=== PATIENT | male | born 1940 | race Caucasian/White ===

== ENCOUNTER 2017-12-02 14:10 | Emergency (ER) | payer MEDICARE ==
--- NOTE | 2017-12-02 14:22 | EDM.PDOC ---
"ED HPI GENERAL MEDICAL PROBLEM - General Chief Complaint: Neuro Symptoms/Deficits Stated Complaint: TROUBLE WALKING, ? SMALL STROKES Time Seen by Provider: 12/02/17 14:22 Source of Information: Reports: Patient, Old Records, RN, RN Notes Reviewed History Limitations: Reports: No Limitations - History of Present Illness INITIAL COMMENTS - FREE TEXT/NARRATIVE: Pt arrives from home by POV with concern that he might have had a stroke. Pt states he was fine when he went to bed last night, but this morning he noticed his legs weren't working normally, oli. the Rt leg seemed weak. He went to breakfast, and when he went to pay he states that he knew he wanted to write a check, but he couldn't make his right hand work. Pt denies difficulties with speech or swallowing, headache, or any other complaints. 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: Aspirin, Other Medication(s) - Related Data Allergies Allergy/AdvReac Type Severity Reaction Status Date / Time lorazepam [From Ativan] Allergy Dizziness Verified 12/02/17 14:50 Penicillins Allergy Hives Verified 12/02/17 14:50 sertraline [From Zoloft] Allergy Anxiety Verified 12/02/17 14:50 Home Meds: Home Meds Acetaminophen 500 mg PO Q6H PRN 06/28/14 [History] Allopurinol [Zyloprim] 300 mg PO DAILY PRN 06/28/14 [History] Amphetamine/Dextroamphetamine [Adderall XR] 15 mg PO DAILY 06/28/14 [History] Aspirin [Halfprin] 81 mg PO DAILY 06/28/14 [History] Clopidogrel Bisulfate [Clopidogrel] 75 mg PO DAILY 06/28/14 [History] Fenofibrate 160 mg PO DAILY 06/28/14 [History] Gabapentin [Neurontin] 600 mg PO BID 06/28/14 [History] Insulin Glarg,Human.Rec.Analog [Lantus Solostar] 40 units SQ ASDIRECTED [History] Insulin Lispro [Humalog] 20 units SQ BID 06/28/14 [History] LORazepam [Ativan] 1 mg PO ASDIRECTED PRN 06/28/14 [History] Meclizine [Antivert] 25 mg PO DAILY PRN 06/28/14 [History] Nitroglycerin [Nitrostat] 0.4 tab SL ASDIRECTED PRN 06/28/14 [History] Simvastatin 20 mg PO BEDTIME 06/28/14 [History] Past Medical History HEENT History: Reports: Cataract Cardiovascular History: Reports: Angina, High Cholesterol, Hypertension Respiratory History: Reports: None Other Respiratory History: states his Sp02 at home runs about 89 to 90. His has a monitor and he always checks his. Gastrointestinal History: Reports: None Other Gastrointestinal History: splenomegaly Genitourinary History: Reports: Prostate Disorder, Renal Calculus, Other (See Below) Other Genitourinary History: ED, testicular pain Musculoskeletal History: Reports: Arthritis, Fracture, Gout Other Musculoskeletal History: right hip pain Neurological History: Reports: Seizure, Other (See Below) Other Neuro History: Narcolepsy Psychiatric History: Reports: Anxiety Other Psychiatric History: claustraphobia Endocrine/Metabolic History: Reports: Diabetes, Type II Hematologic History: Reports: Other (See Below) Other Hematologic History: thrombocytopenia Oncologic (Cancer) History: Reports: Bone, Lymphoma, Prostate - Infectious Disease History Infectious Disease History: Reports: Chicken Pox, Shingles - Past Surgical History Male Surgical History: Reports: Prostate Biopsy, Other (See Below) Social & Family History - Family History Family Medical History: Noncontributory - Tobacco Use Smoking Status *Q: Never Smoker Second Hand Smoke Exposure: No - Alcohol Use Days Per Week of Alcohol Use: 1 Number of Drinks Per Day: 1 Total Drinks Per Week: 1 - Recreational Drug Use Recreational Drug Use: No Drug Use in Last 12 Months: No - Living Situation & Occupation Living situation: Reports: , with Spouse Occupation: Retired ED ROS GENERAL - Review of Systems Review Of Systems: ROS reveals no pertinent complaints other than HPI. ED EXAM, NEURO - Physical Exam Exam: See Below Exam Limited By: No Limitations General Appearance: Alert, No Apparent Distress, Other (chronically ill appearing) Eye Exam: Bilateral Eye: EOMI, Normal Inspection, PERRL Ears: Hearing Grossly Normal Nose: Normal Inspection, Normal Mucosa, No Blood Throat/Mouth: Normal Inspection, Normal Lips, Normal Teeth, Normal Gums, Normal Oropharynx, Normal Voice, No Airway Compromise Head Exam: Atraumatic, Normocephalic Neck: Normal Inspection, Supple, Non-Tender, Full Range of Motion. No: Carotid Bruit, Lymphadenopathy (L), Lymphadenopathy (R) Respiratory/Chest: No Respiratory Distress, Lungs Clear, Normal Breath Sounds, No Accessory Muscle Use, Chest Non-Tender Cardiovascular: Regular Rate, Rhythm, Other (+1 pitting edema to B/L lower extremities) GI/Abdominal: Normal Bowel Sounds, Soft, Non-Tender, No Distention. No: Guarding, Rigid, Rebound (Male) Exam: Deferred Rectal (Males) Exam: Deferred Neurological: Alert, Normal Mood/Affect, CN II-XII Intact, Oriented x 3, Abnormal Gait (chronic), Abnormal Light Touch (chronic at B/L lower exts. distal to knees), Abnormal Motor (mild gen. Rt upper and lower ext. weakness, decrease Rt hand fine motor fct.) Back Exam: Normal Inspection Extremities: Normal Range of Motion, Non-Tender, Pedal Edema Psychiatric: Normal Mood Skin Exam: Warm, Dry, Intact, Normal Color, No Rash EKG INTERPRETATION EKG Date: 12/02/17 Time: 14:56 Rhythm: Other (SR) Rate (Beats/Min): 77 [place]: Normal P-Wave: Present QRS: Other (PACs, inferior Q-waves) ST-T: Normal QT: Normal Comparison: No Change (compared to 05/23/16) Course - Vital Signs Last Recorded V/S: Last Vital Signs Temp 36.7 C 12/02/17 14:15 Pulse 87 12/02/17 14:15 Resp 16 12/02/17 14:15 BP 133/74 12/02/17 14:15 Pulse Ox 91 L 12/02/17 14:15 - Orders/Labs/Meds Orders: Active Orders 24 hr Category Date Time Status EKG 12 Lead [EKG Documentation Completion] [RC] STAT Care 12/02/17 14:48 Active Peripheral IV Care [RC] . DIRECTED Care 12/02/17 14:49 Active UA W/MICROSCOPIC [URIN] Stat Lab 12/02/17 15:11 Ordered Sodium Chloride 0.9% [Saline Flush] Med 12/02/17 14:49 Active 10 ml FLUSH ASDIRECTED PRN Peripheral IV Insertion Adult [OM.PC] Stat Oth 12/02/17 14:48 Ordered Medication Orders Sodium Chloride (Saline Flush) 10 ml FLUSH ASDIRECTED PRN PRN Reason: Keep Vein Open Labs: Laboratory Tests 12/02/17 12/02/17 12/02/17 Range/Units 14:51 14:51 14:51 WBC 4.2 L (5.0-10.0) 10^3/uL RBC 4.08 L (4.6-6.2) 10^6/uL Hgb 12.7 L (14.0-18.0) g/dL Hct 37.1 L (40.0-54.0) % MCV 90.9 (80-100) fL MCH 31.1 (27.0-34.0) pg MCHC 34.2 (33.0-35.0) g/dL Plt Count 80 L (150-450) 10^3/uL Neut % (Auto) 79.2 H (42.2-75.2) % Lymph % (Auto) 12.0 L (20.5-50.1) % [place] % (Auto) 7.2 (2-8) % Eos % (Auto) 1.4 (1.0-3.0) % Baso % (Auto) 0.2 (0.0-1.0) % PT 9.8 (9.0-12.0) SEC INR 1.0 (0.9-1.2) APTT 23.2 (22.0-34.0) SEC Sodium 139 (135-145) mmol/L Potassium 4.1 (3.6-5.0) mmol/L Chloride 109 (101-111) mmol/L Carbon Dioxide 23.0 (21.0-31.0) mmol/L Anion Gap 11.1 BUN 26 H (7-18) mg/dL Creatinine 1.3 (0.6-1.3) mg/dL Est Cr Clr Drug Dosing 44.58 mL/min Estimated GFR (MDRD) 53 BUN/Creatinine Ratio 20.00 Glucose 230 H (74-105) mg/dL Calcium 9.0 (8.4-10.2) mg/dl Total Bilirubin 1.1 H (0.2-1.0) mg/dL AST 51 H (10-42) IU/L ALT 55 (10-60) IU/L Alkaline Phosphatase 58 (42-121) IU/L Troponin I < 0.02 (0.00-0.02) ng/ml C-Reactive Protein (0.0-1.3) mg/dL B-Natriuretic Peptide 7 (0-100) pg/ml Total Protein 7.3 (6.7-8.2) g/dl Albumin 4.2 (3.2-5.5) g/dl Globulin 3.1 Albumin/Globulin Ratio 1.35 Urine Color (YELLOW) Urine Appearance (CLEAR) Urine pH (5.0-9.0) Ur Specific [place] (1.005-1.030) Urine Protein (NEGATIVE) Urine Glucose (UA) (NEGATIVE) Urine Ketones (NEGATIVE) Urine Occult Blood (NEGATIVE) Urine Nitrite (NEGATIVE) Urine Bilirubin (NEGATIVE) Urine Urobilinogen (0.2-1.0) mg/dL Ur Leukocyte Esterase (NEGATIVE) Urine RBC /HPF Urine WBC (0-5/HPF) /HPF Ur Epithelial Cells /HPF Amorphous Sediment (0/HPF) /HPF Urine Bacteria (0-FEW/HPF) /HPF Urine Mucus /LPF 12/02/17 12/02/17 Range/Units 14:51 15:11 WBC (5.0-10.0) 10^3/uL RBC (4.6-6.2) 10^6/uL Hgb (14.0-18.0) g/dL Hct (40.0-54.0) % MCV (80-100) fL MCH (27.0-34.0) pg MCHC (33.0-35.0) g/dL Plt Count (150-450) 10^3/uL Neut % (Auto) (42.2-75.2) % Lymph % (Auto) (20.5-50.1) % [place] % (Auto) (2-8) % Eos % (Auto) (1.0-3.0) % Baso % (Auto) (0.0-1.0) % PT (9.0-12.0) SEC INR (0.9-1.2) APTT (22.0-34.0) SEC Sodium (135-145) mmol/L Potassium (3.6-5.0) mmol/L Chloride (101-111) mmol/L Carbon Dioxide (21.0-31.0) mmol/L Anion Gap BUN (7-18) mg/dL Creatinine (0.6-1.3) mg/dL Est Cr Clr Drug Dosing mL/min Estimated GFR (MDRD) BUN/Creatinine Ratio Glucose (74-105) mg/dL Calcium (8.4-10.2) mg/dl Total Bilirubin (0.2-1.0) mg/dL AST (10-42) IU/L ALT (10-60) IU/L Alkaline Phosphatase (42-121) IU/L Troponin I (0.00-0.02) ng/ml C-Reactive Protein 0.8 (0.0-1.3) mg/dL B-Natriuretic Peptide (0-100) pg/ml Total Protein (6.7-8.2) g/dl Albumin (3.2-5.5) g/dl Globulin Albumin/Globulin Ratio Urine Color Yellow (YELLOW) Urine Appearance Slightly cloudy (CLEAR) Urine pH 5.5 (5.0-9.0) Ur Specific [place] 1.020 (1.005-1.030) Urine Protein 30 H (NEGATIVE) Urine Glucose (UA) 250 H (NEGATIVE) Urine Ketones Negative (NEGATIVE) Urine Occult Blood Negative (NEGATIVE) Urine Nitrite Negative (NEGATIVE) Urine Bilirubin Negative (NEGATIVE) Urine Urobilinogen 0.2 (0.2-1.0) mg/dL Ur Leukocyte Esterase Negative (NEGATIVE) Urine RBC 0-5 /HPF Urine WBC 0-5 (0-5/HPF) /HPF Ur Epithelial Cells Few /HPF Amorphous Sediment Rare (0/HPF) /HPF Urine Bacteria Rare (0-FEW/HPF) /HPF Urine Mucus Many H /LPF Meds: Medications Generic Name Dose Route Start Last Admin Trade Name Freq PRN Reason Stop Dose Admin Sodium Chloride 10 ml 12/02/17 14:49 Saline Flush FLUSH ASDIRECTED PRN Keep Vein Open - Radiology Interpretation Free Text/Narrative:: Final Radiology Report Call: [phone] assistance Online chat: [email or web address] Name: ROLY KAPLAN Age: 77Years M Date: 12/02/2017 SSN: -- : [id number] Study: CT HEAD WO Requesting Physician: Brandon Magallanes Images: 68 Addl Studies: Provided Clinical History: Contrast: Without Contrast Medium: Contrast Amount: Contrast Method: Page 1 of 2 EXAM: CT Head Without Intravenous Contrast CLINICAL HISTORY: 77 years old, male; Signs and symptoms; Other: Possible stroke TECHNIQUE: Axial computed tomography images of the head/brain without intravenous contrast. All CT scans at this facility use one or more dose reduction techniques, viz.: automated exposure control; ma/kV adjustment per patient size (including targeted exams where dose is matched to indication; i.e. head); or iterative reconstruction technique. COMPARISON: CT - Head wo Cont 2016-05-23 15:17 FINDINGS: Brain: There is mild generalized cerebral volume loss. Patchy areas of low attenuation scattered throughout the white matter are nonspecific, but likely represent mild small vessel ischemic changes. There is no evidence of midline shift, mass effect or cerebral edema. No acute intracranial hemorrhage is identified. Ventricles: Unremarkable. No ventriculomegaly. Bones/joints: Unremarkable. No acute fracture. Soft tissues: Unremarkable. Sinuses: Mild mucosal thickening is noted in the maxillary sinuses and bilateral ethmoid air cells. No paranasal sinus air-fluid levels are identified. Mastoid air cells: Unremarkable as visualized. No mastoid effusion. Orbits: The patient is noted to be status post bilateral cataract surgery. IMPRESSION: No acute intracranial abnormality. ROLY KAPLAN | Final Radiology Report CONFIDENTIALITY STATEMENT This report is intended only for use by the referring physician, and only in accordance with law. If you received this in error, call [phone]. Page 2 of 2 Thank you for allowing us to participate in the care of your patient. Dictated and Authenticated by: Mike Brar MD 12/02/2017 3:10 PM Central Time ([place]) EXAM: XR Chest, 1 View CLINICAL HISTORY: 77 years old, male; Signs and symptoms; Other: Edema/weakness TECHNIQUE: Frontal view of the chest. COMPARISON: CT - Chest w Cont 2016-10-20 11:03 FINDINGS: Lungs: A calcified granuloma is noted in the left apex. No consolidation. Pleural space: Unremarkable. No pneumothorax. Heart: Unremarkable. No cardiomegaly. Mediastinum: Unremarkable. Bones/joints: Mild thoracic spine degenerative changes. IMPRESSION: No acute findings. Thank you for allowing us to participate in the care of your patient. Dictated and Authenticated by: Mike Brar MD 12/02/2017 3:42 PM Central Time ([place] & [place]) CT Results Date: 12/02/17 - Re-Assessments/Exams Free Text/Narrative Re-Assessment/Exam: 12/02/17 15:54 I explained the exam findings, lab and imaging results, and recommendation rationale for admission/transfer for further CVA/TIA evaluation (Carotid US, ECHO, MRI/MRA, etc). Pt acknowledges understanding of the findings, and the reason for further evaluation. However, he declines to be either admitted or transferred at this time. 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 I advised the pt that this facility will not have ultrasound or MRI available until Tuesday, December 05. Pt states that if his symptoms persist or worsen he will go to the ER at in tomorrow. I encouraged him to call 911 if he is worse at any time. Departure - Departure Time of Disposition: 15:51 Disposition: Home, Self-Care 01 Condition: Fair Clinical Impression: Right hand weakness Leg weakness Qualifiers: Laterality: unspecified laterality Qualified Code(s): R29.898 - Other symptoms and signs involving the musculoskeletal system - Discharge Information Instructions: Stroke Prevention, [id number], Weakness, [id number] Forms: ED Department Discharge Additional Instructions: Take your regular medications as prescribed. Return to the ER tomorrow for further evaluation if your right hand weakness persists or worsens. Follow up in clinic with your doctor next week for recheck. - My Orders Last 24 Hours: My Active Orders 12/02/17 14:48 EKG 12 Lead [EKG Documentation Completion] [RC] STAT Peripheral IV Insertion Adult [OM.PC] Stat 12/02/17 14:49 Peripheral IV Care [RC] . DIRECTED Sodium Chloride 0.9% [Saline Flush] 10 ml FLUSH ASDIRECTED PRN 12/02/17 15:11 UA W/MICROSCOPIC [URIN] Stat - Assessment/Plan Last 24 Hours: My Active Orders 12/02/17 14:48 EKG 12 Lead [EKG Documentation Completion] [RC] STAT Peripheral IV Insertion Adult [OM.PC] Stat 12/02/17 14:49 Peripheral IV Care [RC] . DIRECTED Sodium Chloride 0.9% [Saline Flush] 10 ml FLUSH ASDIRECTED PRN 12/02/17 15:11 UA W/MICROSCOPIC [URIN] Stat"
[2017-12-02] MEDS ORDERED: Sodium Chloride 0.9% 10 ML Syringe FLUSH PRN (14:49)
[2017-12-02 14:50] VITALS: BP 133/74
[2017-12-02 15:18] LABS: CHLORIDE,CL 109 mmol/L (101-111); SODIUM,NA 139 mmol/L (135-145)
--- NOTE | 2017-12-06 14:13 | EKG ---
12/02/2017- ROLY KAPLAN - FINDINGS: EKG, per my reading, shows sinus rhythm at a rate of 70s with PAC. [facility] /[id number]
== END 2017-12-02 16:10 | disposition home or self-care (01) ==
LOC: DL.ED 14:10
DX: R29.898 Other symptoms and signs involving the musculoskeletal system (principal); E78.00 Pure hypercholesterolemia, unspecified; I10 Essential (primary) hypertension; E11.9 Type 2 diabetes mellitus without complications; Z88.8 Allergy status to other drugs, medicaments and biological substances; Z88.0 Allergy status to penicillin; Z79.899 Other long term (current) drug therapy; Z79.82 Long term (current) use of aspirin; Z79.4 Long term (current) use of insulin
CPT/HCPCS: 36415; 70450; 71045; 80053; 81001; 83880; 84484; 85025; 85610; 85730; 86140; 93005; 93010; 99285

== ENCOUNTER 2018-02-10 09:55 | Emergency (ER) | payer MEDICARE ==
[2018-02-10 10:53] VITALS: BP 159/77
--- NOTE | 2018-02-10 11:02 | EDM.PDOC ---
ED HPI GENERAL MEDICAL PROBLEM - General Chief Complaint: Headache Stated Complaint: FELL AND HIT HEAD, HEADACHE Time Seen by Provider: 02/10/18 10:40 Source of Information: Reports: Patient History Limitations: Reports: No Limitations - History of Present Illness INITIAL COMMENTS - FREE TEXT/NARRATIVE: This 77 yo male patient reports to the ED with posterior neck pain due to a ground level fall. The patient reports he has chronic dizziness and got dizzy last night (2130 or 2200) causing him to fall. The patient reports increased neck pain due the fall. The patient reports that he believes he was knocked out after the fall. The patient reports a lengthy history of lower back pain, prostate cancer with treatments and is scheduled to have vertebral fusion of his lower back in the future. Onset Date: 02/09/18 Onset Time: 21:30 Duration: Constant Location: Reports: Neck (posterior neck) Quality: Reports: Ache Severity: Moderate Improves with: Reports: Rest Worsens with: Reports: Movement Context: Reports: Other Associated Symptoms: Reports: No Other Symptoms Head Pain Score (Numeric/FACES): 6 - Related Data Allergies Allergy/AdvReac Type Severity Reaction Status Date / Time lorazepam [From Ativan] Allergy Dizziness Verified 12/02/17 14:50 Penicillins Allergy Hives Verified 02/10/18 10:30 sertraline [From Zoloft] Allergy Anxiety Verified 02/10/18 10:30 Home Meds: Home Meds Acetaminophen 500 mg PO Q6H PRN 06/28/14 [History] Allopurinol [Zyloprim] 300 mg PO DAILY PRN 06/28/14 [History] Amphetamine/Dextroamphetamine [Adderall XR] 15 mg PO DAILY 06/28/14 [History] Aspirin [Halfprin] 81 mg PO DAILY 06/28/14 [History] Clopidogrel Bisulfate [Clopidogrel] 75 mg PO DAILY 06/28/14 [History] Fenofibrate 160 mg PO DAILY 06/28/14 [History] Gabapentin [Neurontin] 600 mg PO BID 06/28/14 [History] Insulin Glarg,Human.Rec.Analog [Lantus Solostar] 40 units SQ ASDIRECTED [History] Insulin Lispro [Humalog] 20 units SQ BID 06/28/14 [History] LORazepam [Ativan] 1 mg PO ASDIRECTED PRN 06/28/14 [History] Meclizine [Antivert] 25 mg PO DAILY PRN 06/28/14 [History] Nitroglycerin [Nitrostat] 0.4 tab SL ASDIRECTED PRN 06/28/14 [History] Simvastatin 20 mg PO BEDTIME 06/28/14 [History] Past Medical History HEENT History: Reports: Cataract Cardiovascular History: Reports: Angina, High Cholesterol, Hypertension Respiratory History: Reports: None Other Respiratory History: states his Sp02 at home runs about 89 to 90. His has a monitor and he always checks his. Gastrointestinal History: Reports: None Other Gastrointestinal History: splenomegaly Genitourinary History: Reports: Prostate Disorder, Renal Calculus, Other (See Below) Other Genitourinary History: ED, testicular pain Musculoskeletal History: Reports: Arthritis, Fracture, Gout Other Musculoskeletal History: right hip pain Neurological History: Reports: Seizure, Other (See Below) Other Neuro History: Narcolepsy Psychiatric History: Reports: Anxiety Other Psychiatric History: claustraphobia Endocrine/Metabolic History: Reports: Diabetes, Type II Hematologic History: Reports: Other (See Below) Other Hematologic History: thrombocytopenia Oncologic (Cancer) History: Reports: Bone, Lymphoma, Prostate - Infectious Disease History Infectious Disease History: Reports: Chicken Pox, Shingles - Past Surgical History Male Surgical History: Reports: Prostate Biopsy, Other (See Below) Social & Family History - Family History Family Medical History: Noncontributory - Tobacco Use Smoking Status *Q: Unknown Ever Smoked - Caffeine Use Caffeine Use: Reports: Coffee - Recreational Drug Use Recreational Drug Use: No - Living Situation & Occupation Living situation: Reports: , with Spouse Occupation: Retired ED ROS GENERAL - Review of Systems Review Of Systems: ROS reveals no pertinent complaints other than HPI. - Physical Exam Exam: See Below Exam Limited By: No Limitations General Appearance: Alert, WD/WN, Moderate Distress Eye Exam: Bilateral Eye: EOMI, Normal Inspection, PERRL Ears: Normal External Exam, Normal Canal, Hearing Grossly Normal, Normal TMs Nose: Normal Inspection, Normal Mucosa, No Blood Throat/Mouth: Normal Inspection, Normal Lips, Normal Teeth, Normal Gums, Normal Oropharynx, Normal Voice, No Airway Compromise Head Exam: Atraumatic, Normocephalic Neck: Limited Range of Motion (due to pain), Tender Midline (posterior neck) Respiratory/Chest: No Respiratory Distress, Lungs Clear, Normal Breath Sounds, No Accessory Muscle Use, Chest Non-Tender Cardiovascular: Normal Peripheral Pulses, Regular Rate, Rhythm, No Edema, No Gallop, No JVD, No Murmur, No Rub GI/Abdominal: Normal Bowel Sounds, Soft, Non-Tender, No Organomegaly, No Distention, No Abnormal Bruit, No Mass (Male) Exam: Deferred Rectal (Males) Exam: Deferred Neuro Exam (Abbreviated): Alert, Oriented, CN II-XII Intact, Normal Cognition, Normal Gait, Normal Reflexes, No Motor/Sensory Deficits Back Exam: Normal Inspection, Full Range of Motion, NT Extremities: Normal Inspection, Normal Range of Motion, Non-Tender, No Pedal Edema, Normal Capillary Refill Psychiatric: Normal Affect, Normal Mood Skin Exam: Warm, Dry, Intact, Normal Color, No Rash Course - Vital Signs Last Recorded V/S: Last Vital Signs Temp 36.4 C 02/10/18 10:25 Pulse 72 02/10/18 10:25 Resp 16 02/10/18 10:25 BP 159/77 H 02/10/18 10:25 Pulse Ox 99 02/10/18 10:25 - Orders/Labs/Meds Orders: Active Orders 24 hr Category Date Time Status Cervical Spine wo Cont [CT] Urgent Exams 02/10/18 10:12 Taken Head wo Cont [CT] Urgent Exams 02/10/18 10:12 Taken Departure - Departure Time of Disposition: 11:07 Disposition: Home, Self-Care 01 Condition: Fair Clinical Impression: Fall from ground level Neck muscle strain Qualifiers: Encounter type: initial encounter Qualified Code(s): S16.1XXA - Strain of muscle, fascia and tendon at neck level, initial encounter - Discharge Information *PRESCRIPTION DRUG MONITORING PROGRAM REVIEWED*: Not Applicable *COPY OF PRESCRIPTION DRUG MONITORING REPORT IN PATIENT SUSAN: Not Applicable Instructions: Cervical Sprain, [id number] Forms: ED Department Discharge Care Plan Goals: The patient was advised of the examination and CT results during the visit. The patient was encouraged to rest and continue with his current medications as prescribed. If the patient has any additional symptoms or further concerns, the patient should follow-up with his primary care facility or return to the emergency department. - My Orders Last 24 Hours: My Active Orders 02/10/18 10:12 Cervical Spine wo Cont [CT] Urgent Head wo Cont [CT] Urgent - Assessment/Plan Last 24 Hours: My Active Orders 02/10/18 10:12 Cervical Spine wo Cont [CT] Urgent Head wo Cont [CT] Urgent
== END 2018-02-10 11:18 | disposition home or self-care (01) ==
LOC: DL.ED 09:55
DX: S16.1XXA Strain of muscle, fascia and tendon at neck level, initial encounter (principal); E78.00 Pure hypercholesterolemia, unspecified; I10 Essential (primary) hypertension; E11.9 Type 2 diabetes mellitus without complications; Z88.0 Allergy status to penicillin; Z88.8 Allergy status to other drugs, medicaments and biological substances; Z79.82 Long term (current) use of aspirin; Z79.899 Other long term (current) drug therapy; Z79.4 Long term (current) use of insulin; W19.XXXA Unspecified fall, initial encounter
CPT/HCPCS: 70450; 72125; 99283; 99284

== ENCOUNTER 2018-08-10 17:56 | Emergency (ER) | payer MEDICARE ==
[2018-08-10 18:59] LABS: ANION GAP 18.7; CHLORIDE,CL 101 mmol/L (101-111); SODIUM,NA 132 mmol/L (135-145)
[2018-08-10 19:25] VITALS: BP 154/60
[2018-08-10] MEDS ORDERED: Insulin Regular, Human 100 Units/ML 3 ML Vial IV ONE (20:19)
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
[2018-08-10] MEDS ORDERED: Colchicine 0.6 MG Tab PO ONE ×2 (20:49→21:52)
[2018-08-10] MEDS ORDERED: Insulin NPH/Insulin Regular,Human 70-30 100 Units/ML 10 ML Vial SUBCUT ONE (20:52)
[2018-08-10] MEDS ORDERED: Insulin Regular, Human 100 Units/ML 3 ML Vial SUBCUT ONE (20:59)
== END 2018-08-10 21:50 | disposition left against medical advice (07) ==
LOC: DL.ED 17:56
DX: E11.65 Type 2 diabetes mellitus with hyperglycemia (principal); M10.9 Gout, unspecified; R79.1 Abnormal coagulation profile; I10 Essential (primary) hypertension; F41.9 Anxiety disorder, unspecified; C61 Malignant neoplasm of prostate; C77.9 Secondary and unspecified malignant neoplasm of lymph node, unspecified; C79.51 Secondary malignant neoplasm of bone; Z88.0 Allergy status to penicillin; Z88.8 Allergy status to other drugs, medicaments and biological substances; Z79.4 Long term (current) use of insulin; Z79.82 Long term (current) use of aspirin; Z79.899 Other long term (current) drug therapy
CPT/HCPCS: 36415; 73070-RT; 73562-RT; 80053; 81001; 84550; 85025; 85379; 85610; 86140; 87086; 93971; 96372; 99283; A9270-GY; J1815-GY

== ENCOUNTER 2018-08-16 07:25 | Inpatient (IN) | payer MEDICARE ==
--- NOTE | 2018-08-16 07:40 | EDM.PDOC ---
ED HPI GENERAL MEDICAL PROBLEM - General Stated Complaint: STOMACH CRAMPS, LEGS AND HANDS Time Seen by Provider: 08/16/18 07:33 Source of Information: Reports: Patient History Limitations: Reports: No Limitations - History of Present Illness INITIAL COMMENTS - FREE TEXT/NARRATIVE: She comes emergency Department today with complaints of generalized body aches cramps and pain. At approximately 2:00 this morning the patient woke in complains of generalized cramping in his hands and his legs. He has been having to go to the bathroom much more frequently than normal. No painful urination. No fever no chills. No chest pain or shortness of breath or difficulty breathing. Does complain of some suprapubic pain. No other abdominal pain. No diarrhea. No nausea no vomiting. He was seen in the emergency department recently for a lump on his right thigh which he was told his gout and was placed on prednisone. His blood sugars as been higher than normal. - Related Data Allergies Allergy/AdvReac Type Severity Reaction Status Date / Time lorazepam [From Ativan] Allergy Dizziness Verified 08/16/18 11:09 Penicillins Allergy Hives Verified 08/16/18 11:09 sertraline [From Zoloft] Allergy Anxiety Verified 08/16/18 11:09 Home Meds: Home Meds Acetaminophen 500 mg PO Q6H PRN 06/28/14 [History] Allopurinol [Zyloprim] 300 mg PO DAILY 06/28/14 [History] Amphetamine/Dextroamphetamine [Adderall XR] 15 mg PO DAILY 06/28/14 [History] Aspirin [Halfprin] 81 mg PO DAILY 06/28/14 [History] Clopidogrel Bisulfate [Clopidogrel] 75 mg PO DAILY 06/28/14 [History] Fenofibrate 160 mg PO DAILY 06/28/14 [History] Gabapentin [Neurontin] 600 mg PO BID 06/28/14 [History] Insulin Glarg,Human.Rec.Analog [Lantus Solostar] 40 units SQ ASDIRECTED [History] Insulin Lispro [Humalog] 20 units SQ BID 06/28/14 [History] Meclizine [Antivert] 25 mg PO DAILY PRN 06/28/14 [History] Nitroglycerin [Nitrostat] 0.4 tab SL ASDIRECTED PRN 11/28/14 [History] Simvastatin 20 mg PO BEDTIME 06/28/14 [History] Past Medical History HEENT History: Reports: Cataract Cardiovascular History: Reports: Angina, High Cholesterol, Hypertension Respiratory History: Reports: None Other Respiratory History: states his Sp02 at home runs about 89 to 90. His has a monitor and he always checks his. Gastrointestinal History: Reports: None Other Gastrointestinal History: splenomegaly Genitourinary History: Reports: Prostate Disorder, Renal Calculus, Other (See Below) Other Genitourinary History: ED, testicular pain Musculoskeletal History: Reports: Arthritis, Fracture, Gout Other Musculoskeletal History: right hip pain Neurological History: Reports: Seizure, Other (See Below) Other Neuro History: Narcolepsy Psychiatric History: Reports: Anxiety Other Psychiatric History: claustraphobia Endocrine/Metabolic History: Reports: Diabetes, Type II Hematologic History: Reports: Other (See Below) Other Hematologic History: thrombocytopenia Oncologic (Cancer) History: Reports: Bone, Lymphoma, Prostate - Infectious Disease History Infectious Disease History: Reports: Chicken Pox, Shingles - Past Surgical History Male Surgical History: Reports: Prostate Biopsy, Other (See Below) Social & Family History - Family History Family Medical History: Noncontributory - Caffeine Use Caffeine Use: Reports: None - Living Situation & Occupation Living situation: Reports: , with Spouse Occupation: Retired ED ROS GENERAL - Review of Systems Review Of Systems: ROS reveals no pertinent complaints other than HPI. ED EXAM, GENERAL - Physical Exam Exam: See Below Exam Limited By: No Limitations General Appearance: Alert, WD/WN Head: Atraumatic, Normocephalic Neck: Normal Inspection, Supple, Non-Tender Respiratory/Chest: No Respiratory Distress, Lungs Clear, Normal Breath Sounds, No Accessory Muscle Use, Chest Non-Tender Cardiovascular: Normal Peripheral Pulses, Regular Rate, Rhythm GI/Abdominal: Normal Bowel Sounds, Soft, Non-Tender, No Organomegaly, No Distention Back Exam: Normal Inspection, Full Range of Motion Extremities: Normal Inspection, Normal Range of Motion, Non-Tender, Normal Capillary Refill Neurological: Alert, Oriented, Normal Cognition, No Motor/Sensory Deficits Psychiatric: Normal Affect, Normal Mood Skin Exam: Warm, Dry, Intact, No Rash, Pallor Lymphatic: No Adenopathy EKG INTERPRETATION EKG Date: 08/15/18 Time: 07:58 Rhythm: NSR Rate (Beats/Min): 91 [place]: Normal P-Wave: Present QRS: Normal ST-T: Normal QT: Normal Course - Vital Signs Last Recorded V/S: Last Vital Signs Temp 37.2 C 08/16/18 15:51 Pulse 74 08/16/18 15:51 Resp 20 08/16/18 15:51 BP 131/70 08/16/18 15:51 Pulse Ox 97 08/16/18 15:51 - Orders/Labs/Meds Orders: Active Orders 24 hr Category Date Time Status CULTURE URINE [RM] Stat Lab 08/16/18 09:35 Received Peripheral IV Insertion Adult [OM.PC] Routine Oth 08/16/18 09:54 Ordered Peripheral IV Insertion Adult [OM.PC] Stat Oth 08/16/18 07:34 Ordered Medication Orders Acetaminophen (Tylenol Extra Strength) 500 mg PO Q6H PRN PRN Reason: Pain Allopurinol (Zyloprim) 300 mg PO DAILY [facility] Last Admin: 08/16/18 13:04 Dose: Not Given Aspirin (Halfprin) 81 mg PO DAILY [facility] Clopidogrel Bisulfate (Plavix) 75 mg PO DAILY [facility] Last Admin: 08/16/18 13:03 Dose: Not Given Ceftriaxone Sodium 1 gm/ (Lidocaine HCl 2.1 ml) 0 gm IM DAILY ONE Stop: 08/17/18 09:01 Cyclobenzaprine HCl (Flexeril) 10 mg PO DAILY PRN PRN Reason: Muscle Spasm Dextrose/Water (Dextrose 50% In Water) 25 ml IVPUSH ASDIRECTED PRN PRN Reason: Hypoglycemia Gabapentin (Neurontin) 600 mg PO BID [facility] Last Admin: 08/16/18 13:03 Dose: Not Given Glucagon (Glucagen) 1 mg IM ONETIME PRN PRN Reason: Hypoglycemia Heparin Sodium (Porcine) (Heparin Sodium) 5,000 units SUBCUT Q8HR [facility] Last Admin: 08/16/18 14:57 Dose: 5,000 units Lactated Ringer's (Ringers, Lactated) 1,000 mls @ 100 mls/hr IV ASDIRECTED [facility] Last Admin: 08/16/18 14:57 Dose: 100 mls/hr Insulin Glargine (Lantus) 30 unit SUBCUT BEDTIME [facility] Insulin Human Lispro (Humalog) 0 unit SUBCUT TIDAC [facility]; Protocol Last Admin: 08/16/18 17:54 Dose: 6 units Insulin Human Lispro (Humalog) 10 unit SUBCUT BID@0800,1800 [facility] Meclizine HCl (Antivert) 25 mg PO DAILY PRN PRN Reason: Dizziness Nitroglycerin (Nitrostat) 0.4 mg SL Q5M PRN PRN Reason: Chest Pain Non-Formulary Medication (Amphetamine/Dextroamphetamine [Adderall Xr]) 15 mg PO DAILY [facility] Non-Formulary Medication (Fenofibrate [Fenofibrate]) 160 mg PO DAILY [facility] Ondansetron HCl (Zofran Odt) 4 mg PO Q6H PRN PRN Reason: nausea, able to take PO Promethazine HCl (Phenergan) 25 mg PO Q6H PRN PRN Reason: nausea, able to take PO Simvastatin (Zocor) 20 mg PO BEDTIME [facility] Labs: Laboratory Tests 08/16/18 08/16/18 08/16/18 Range/Units 07:41 07:41 07:41 WBC 7.8 (5.0-10.0) 10^3/uL RBC 3.48 L (4.6-6.2) 10^6/uL Hgb 10.5 L (14.0-18.0) g/dL Hct 31.5 L (40.0-54.0) % MCV 90.5 (80-100) fL MCH 30.2 (27.0-34.0) pg MCHC 33.3 (33.0-35.0) g/dL Plt Count 138 L (150-450) 10^3/uL Neut % (Auto) 93.5 H (42.2-75.2) % Lymph % (Auto) 4.2 L (20.5-50.1) % [place] % (Auto) 2.1 (2-8) % Eos % (Auto) 0.1 L (1.0-3.0) % Baso % (Auto) 0.1 (0.0-1.0) % Sodium 138 (135-145) mmol/L Potassium 3.4 L (3.6-5.0) mmol/L Chloride 108 (101-111) mmol/L Carbon Dioxide 17.0 L (21.0-31.0) mmol/L Anion Gap 16.4 BUN 35 H (7-18) mg/dL Creatinine 1.5 H (0.6-1.3) mg/dL Est Cr Clr Drug Dosing TNP Estimated GFR (MDRD) 45 BUN/Creatinine Ratio 23.33 Glucose 66 L (74-105) mg/dL POC Glucose (83-110) mg/dl Calcium 9.2 (8.4-10.2) mg/dl Phosphorus (2.5-4.6) mg/dL Magnesium 2.0 (1.8-2.5) mg/dL Total Bilirubin 0.9 (0.2-1.0) mg/dL AST 36 (10-42) IU/L ALT 31 (10-60) IU/L Alkaline Phosphatase 98 (42-121) IU/L Troponin I < 0.02 (0.00-0.02) ng/ml C-Reactive Protein (0.0-1.3) mg/dL Total Protein 7.1 (6.7-8.2) g/dl Albumin 3.7 (3.2-5.5) g/dl Globulin 3.4 Albumin/Globulin Ratio 1.09 Urine Color (YELLOW) Urine Appearance (CLEAR) Urine pH (5.0-9.0) Ur Specific [place] (1.005-1.030) Urine Protein (NEGATIVE) Urine Glucose (UA) (NEGATIVE) Urine Ketones (NEGATIVE) Urine Occult Blood (NEGATIVE) Urine Nitrite (NEGATIVE) Urine Bilirubin (NEGATIVE) Urine Urobilinogen (0.2-1.0) mg/dL Ur Leukocyte Esterase (NEGATIVE) Urine RBC /HPF Urine WBC (0-5/HPF) /HPF Ur Epithelial Cells /HPF Urine Bacteria (0-FEW/HPF) /HPF 08/16/18 08/16/18 08/16/18 Range/Units 07:41 07:41 07:43 WBC (5.0-10.0) 10^3/uL RBC (4.6-6.2) 10^6/uL Hgb (14.0-18.0) g/dL Hct (40.0-54.0) % MCV (80-100) fL MCH (27.0-34.0) pg MCHC (33.0-35.0) g/dL Plt Count (150-450) 10^3/uL Neut % (Auto) (42.2-75.2) % Lymph % (Auto) (20.5-50.1) % [place] % (Auto) (2-8) % Eos % (Auto) (1.0-3.0) % Baso % (Auto) (0.0-1.0) % Sodium (135-145) mmol/L Potassium (3.6-5.0) mmol/L Chloride (101-111) mmol/L Carbon Dioxide (21.0-31.0) mmol/L Anion Gap BUN (7-18) mg/dL Creatinine (0.6-1.3) mg/dL Est Cr Clr Drug Dosing Estimated GFR (MDRD) BUN/Creatinine Ratio Glucose (74-105) mg/dL POC Glucose 69 L (83-110) mg/dl Calcium (8.4-10.2) mg/dl Phosphorus 2.3 L (2.5-4.6) mg/dL Magnesium (1.8-2.5) mg/dL Total Bilirubin (0.2-1.0) mg/dL AST (10-42) IU/L ALT (10-60) IU/L Alkaline Phosphatase (42-121) IU/L Troponin I (0.00-0.02) ng/ml C-Reactive Protein 1.9 H (0.0-1.3) mg/dL Total Protein (6.7-8.2) g/dl Albumin (3.2-5.5) g/dl Globulin Albumin/Globulin Ratio Urine Color (YELLOW) Urine Appearance (CLEAR) Urine pH (5.0-9.0) Ur Specific [place] (1.005-1.030) Urine Protein (NEGATIVE) Urine Glucose (UA) (NEGATIVE) Urine Ketones (NEGATIVE) Urine Occult Blood (NEGATIVE) Urine Nitrite (NEGATIVE) Urine Bilirubin (NEGATIVE) Urine Urobilinogen (0.2-1.0) mg/dL Ur Leukocyte Esterase (NEGATIVE) Urine RBC /HPF Urine WBC (0-5/HPF) /HPF Ur Epithelial Cells /HPF Urine Bacteria (0-FEW/HPF) /HPF 08/16/18 08/16/18 08/16/18 Range/Units 08:24 08:54 09:35 WBC (5.0-10.0) 10^3/uL RBC (4.6-6.2) 10^6/uL Hgb (14.0-18.0) g/dL Hct (40.0-54.0) % MCV (80-100) fL MCH (27.0-34.0) pg MCHC (33.0-35.0) g/dL Plt Count (150-450) 10^3/uL Neut % (Auto) (42.2-75.2) % Lymph % (Auto) (20.5-50.1) % [place] % (Auto) (2-8) % Eos % (Auto) (1.0-3.0) % Baso % (Auto) (0.0-1.0) % Sodium (135-145) mmol/L Potassium (3.6-5.0) mmol/L Chloride (101-111) mmol/L Carbon Dioxide (21.0-31.0) mmol/L Anion Gap BUN (7-18) mg/dL Creatinine (0.6-1.3) mg/dL Est Cr Clr Drug Dosing Estimated GFR (MDRD) BUN/Creatinine Ratio Glucose (74-105) mg/dL POC Glucose 91 102 (83-110) mg/dl Calcium (8.4-10.2) mg/dl Phosphorus (2.5-4.6) mg/dL Magnesium (1.8-2.5) mg/dL Total Bilirubin (0.2-1.0) mg/dL AST (10-42) IU/L ALT (10-60) IU/L Alkaline Phosphatase (42-121) IU/L Troponin I (0.00-0.02) ng/ml C-Reactive Protein (0.0-1.3) mg/dL Total Protein (6.7-8.2) g/dl Albumin (3.2-5.5) g/dl Globulin Albumin/Globulin Ratio Urine Color Dark yellow (YELLOW) Urine Appearance Cloudy (CLEAR) Urine pH 5.5 (5.0-9.0) Ur Specific [place] 1.015 (1.005-1.030) Urine Protein 30 H (NEGATIVE) Urine Glucose (UA) 500 H (NEGATIVE) Urine Ketones Negative (NEGATIVE) Urine Occult Blood Moderate H (NEGATIVE) Urine Nitrite Positive H (NEGATIVE) Urine Bilirubin Negative (NEGATIVE) Urine Urobilinogen 0.2 (0.2-1.0) mg/dL Ur Leukocyte Esterase Small H (NEGATIVE) Urine RBC 10-20 H /HPF Urine WBC 50-75 H (0-5/HPF) /HPF Ur Epithelial Cells Rare /HPF Urine Bacteria Many H (0-FEW/HPF) /HPF Meds: Medications Generic Name Dose Route Start Last Admin Trade Name Freq PRN Reason Stop Dose Admin Acetaminophen 500 mg 08/16/18 11:41 Tylenol Extra Strength PO Q6H PRN Pain Allopurinol 300 mg 08/16/18 11:45 08/16/18 13:04 Zyloprim PO Not Given DAILY [facility] Aspirin 81 mg 08/17/18 09:00 Halfprin PO DAILY [facility] Clopidogrel Bisulfate 75 mg 08/16/18 11:45 08/16/18 13:03 Plavix PO Not Given DAILY [facility] Ceftriaxone Sodium 1 gm/ 0 gm 08/17/18 09:00 Lidocaine HCl 2.1 ml IM 08/17/18 09:01 DAILY ONE Cyclobenzaprine HCl 10 mg 08/16/18 12:30 Flexeril PO DAILY PRN Muscle Spasm Dextrose/Water 25 ml 08/16/18 12:11 Dextrose 50% In Water IVPUSH ASDIRECTED PRN Hypoglycemia Gabapentin 600 mg 08/16/18 11:45 08/16/18 13:03 Neurontin PO Not Given BID [facility] Glucagon 1 mg 08/16/18 12:11 Glucagen IM ONETIME PRN Hypoglycemia Heparin Sodium (Porcine) 5,000 units 08/16/18 14:00 08/16/18 14:57 Heparin Sodium SUBCUT 5,000 units Q8HR [facility] Administration Lactated Ringer's 1,000 mls @ 100 mls/hr 08/16/18 14:30 08/16/18 14:57 Ringers, Lactated IV 100 mls/hr ASDIRECTED [facility] Administration Insulin Glargine 30 unit 08/16/18 21:00 Lantus SUBCUT BEDTIME [facility] Insulin Human Lispro 0 unit 08/16/18 17:00 08/16/18 17:54 Humalog SUBCUT 6 units TIDAC [facility] Administration Protocol Insulin Human Lispro 10 unit 08/17/18 08:00 Humalog SUBCUT BID@0800,1800 [facility] Meclizine HCl 25 mg 08/16/18 11:41 Antivert PO DAILY PRN Dizziness Nitroglycerin 0.4 mg 08/16/18 11:41 Nitrostat SL Q5M PRN Chest Pain Non-Formulary Medication 15 mg 08/17/18 09:00 Amphetamine/Dextroamphetamine [Adderall Xr] PO DAILY [facility] Non-Formulary Medication 160 mg 08/17/18 09:00 Fenofibrate [Fenofibrate] PO DAILY [facility] Ondansetron HCl 4 mg 08/16/18 11:34 Zofran Odt PO Q6H PRN nausea, able to take PO Promethazine HCl 25 mg 08/16/18 11:34 Phenergan PO Q6H PRN nausea, able to take PO Simvastatin 20 mg 08/16/18 21:00 Zocor PO BEDTIME [facility] Discontinued Medications Generic Name Dose Route Start Last Admin Trade Name Freq PRN Reason Stop Dose Admin Ceftriaxone Sodium 1,000 mg/ 100 mls @ 200 mls/hr 08/16/18 09:54 08/16/18 10: 07 Sodium Chloride IV 08/16/18 10:23 200 mls/hr ONETIME ONE Administration Insulin Human Lispro 10 unit 08/16/18 17:00 08/16/18 17:53 Humalog SUBCUT 10 units BIDAC [facility] Administration Orphenadrine Citrate 30 mg 08/16/18 09:52 08/16/18 10:07 Norflex IM 08/16/18 09:53 30 mg NOW STA Administration Potassium Chloride 40 meq 08/16/18 09:52 08/16/18 10:56 Potassium Chloride Solution PO 08/16/18 09:53 Not Given NOW STA Potassium Chloride 40 meq 08/16/18 17:15 08/16/18 17:52 Klor-Con 10 PO 08/16/18 17:16 40 meq ONETIME ONE Administration Sodium Chloride 10 ml 08/16/18 07:34 08/16/18 10:08 Saline Flush FLUSH 10 ml ASDIRECTED PRN Administration Keep Vein Open Sodium Chloride 10 ml 08/16/18 09:54 Saline Flush FLUSH ASDIRECTED PRN Keep Vein Open Sodium Phosphate 250 mg 08/16/18 17:15 08/16/18 17:52 Neutra-Phos PO 08/16/18 17:16 250 mg ONETIME ONE Administration - Re-Assessments/Exams Free Text/Narrative Re-Assessment/Exam: 08/15/18 his initial blood sugar is in the 60s. He was given some oral food as well as orange juice and protein. His EKG is rather unremarkable and negative. Patient's blood sugar improved over 100. i did review his chart he recently was seen in the emergency department and found to have Escherichia coli in his urine culture but he was not placed on any antibiotics. His urine at this time is clearly infectious. He was given some Rocephin in the emergency department. He was also recently treated for gout with some prednisone which may be causing problems with his blood sugars as well as the urinary tract infection. He also complains of quite a bit of muscle spasms and cramps which can be related tohis potassium his magnesium is normal. I feel that with a urinary tract infection he lives at home alone and his difficulty with his blood sugars that we should monitor him in observation to ensure that he is improving that he does not become hypoglycemic at home as he has no one to stay with him.I talked to the hospitalist employee relations advisor and he accepted the patient under his care and observation here. Departure - Departure Time of Disposition: 10:08 Disposition: Refer to Observation Clinical Impression: Weakness, Hypoglycemia UTI (urinary tract infection) Qualifiers: Urinary tract infection type: site unspecified Hematuria presence: with hematuria Qualified Code(s): N39.0 - Urinary tract infection, site not specified - Discharge Information - My Orders Last 24 Hours: My Active Orders 08/16/18 07:34 Peripheral IV Insertion Adult [OM.PC] Stat 08/16/18 09:35 CULTURE URINE [RM] Stat 08/16/18 09:54 Peripheral IV Insertion Adult [OM.PC] Routine - Assessment/Plan Last 24 Hours: My Active Orders 08/16/18 07:34 Peripheral IV Insertion Adult [OM.PC] Stat 08/16/18 09:35 CULTURE URINE [RM] Stat 08/16/18 09:54 Peripheral IV Insertion Adult [OM.PC] Routine Assessment:: UTI Muscle cramps UTI Hypokalemia hypoglycemia weakness Plan: Admit for observation here at [facility].
[2018-08-16 08:11] LABS: ANION GAP 16.4; CHLORIDE,CL 108 mmol/L (101-111); SODIUM,NA 138 mmol/L (135-145)
[2018-08-16] MEDS: Sodium Chloride 0.9% 10 ML Syringe FLUSH PRN ×2 (08:59→10:08)
[2018-08-16] MEDS ORDERED: Potassium Chloride 10% 20 MEQ/15 ML Soln 15 ML UD Cup PO STA (09:52)
[2018-08-16] MEDS ORDERED: Sodium Chloride 0.9% 10 ML Syringe FLUSH PRN (09:54)
[2018-08-16] MEDS ORDERED: Ondansetron 4 MG Tab.DIS PO PRN (11:34)
[2018-08-16] MEDS ORDERED: Promethazine 25 MG Tab PO PRN (11:34)
[2018-08-16] MEDS ORDERED: Nitroglycerin 0.4 MG Tab.SL SL PRN (11:41)
[2018-08-16] MEDS ORDERED: Meclizine 12.5 MG Tab PO PRN (11:41)
--- NOTE | 2018-08-16 11:50 | PCM.HP ---
H&P History of Present Illness - General Date of Service: 08/16/18 Admit Problem/Dx: Admission Diagnosis/Problem Admission Diagnosis/Problem Weakness Source of Information: Patient, Old Records - History of Present Illness Initial Comments - Free Text/Narative: Mr. Jones is a 77-year-old male with history significant for coronary artery disease, diabetes, dyslipidemia, kidney stones, posterior tonsillar status post radiation therapy seizure disorder, chronic thrombocytopenia and gout who presented to the ED with complains of generalized body aches, cramps and weakness. He reports that he has had muscle cramps on and off for several months but this time it was so severe that it woke him up from his sleep. He denies any exposure to sick contacts or being in the cold. Was recently started on short course of prednisone for gout. Reports that he feels weaker than his baseline. Reports intermittent non-productive cough. Also reports intermittent episodes of hematuria but denies any current bloody urine. Reports "a little" dysuria. Also reports edema of his lower extremity. He denies fevers, chills, chest pain, shortness of breath, abdominal pain, n/v/d, melena, hematochezia, or any other symptoms. Denies history of tobacco, alcohol, and illicit drug use. - Related Data Allergies/Adverse Reactions: Allergies Allergy/AdvReac Type Severity Reaction Status Date / Time lorazepam [From Ativan] Allergy Dizziness Verified 08/16/18 11:09 Penicillins Allergy Hives Verified 08/16/18 11:09 sertraline [From Zoloft] Allergy Anxiety Verified 08/16/18 11:09 Home Medications: Home Meds Acetaminophen 500 mg PO Q6H PRN 06/28/14 [History] Allopurinol [Zyloprim] 300 mg PO DAILY 06/28/14 [History] Amphetamine/Dextroamphetamine [Adderall XR] 15 mg PO DAILY 06/28/14 [History] Aspirin [Halfprin] 81 mg PO DAILY 06/28/14 [History] Clopidogrel Bisulfate [Clopidogrel] 75 mg PO DAILY 06/28/14 [History] Fenofibrate 160 mg PO DAILY 06/28/14 [History] Gabapentin [Neurontin] 600 mg PO BID 06/28/14 [History] Insulin Glarg,Human.Rec.Analog [Lantus Solostar] 40 units SQ ASDIRECTED [History] Insulin Lispro [Humalog] 20 units SQ BID 06/28/14 [History] Meclizine [Antivert] 25 mg PO DAILY PRN 06/28/14 [History] Nitroglycerin [Nitrostat] 0.4 tab SL ASDIRECTED PRN 06/28/14 [History] Simvastatin 20 mg PO BEDTIME 06/28/14 [History] Past Medical History HEENT History: Reports: Cataract Cardiovascular History: Reports: Angina, High Cholesterol, Hypertension Respiratory History: Reports: Asthma Other Respiratory History: states his Sp02 at home runs about 89 to 90. His has a monitor and he always checks his. Gastrointestinal History: Reports: Chronic Diarrhea, GERD Other Gastrointestinal History: splenomegaly Genitourinary History: Reports: Prostate Disorder, Renal Calculus, Other (See Below) Other Genitourinary History: ED, testicular pain Musculoskeletal History: Reports: Arthritis, Fracture, Gout Other Musculoskeletal History: right hip pain Neurological History: Reports: Seizure, Vertigo, Other (See Below) Other Neuro History: Narcolepsy Psychiatric History: Reports: Anxiety, Bipolar Other Psychiatric History: claustraphobia Endocrine/Metabolic History: Reports: Diabetes, Type II Hematologic History: Reports: Other (See Below) Other Hematologic History: thrombocytopenia Immunologic History: Reports: None Oncologic (Cancer) History: Reports: Bone, Lymphoma, Prostate Dermatologic History: Reports: None - Infectious Disease History Infectious Disease History: Reports: None - Past Surgical History Head Surgeries/Procedures: Reports: None Cardiovascular Surgical History: Reports: None Respiratory Surgical History: Reports: None GI Surgical History: Reports: None, Colonoscopy, EGD, Hernia, Abdominal Male Surgical History: Reports: Prostate Biopsy, Other (See Below) Other Male Surgeries/Procedures: unknown prostate surgery Endocrine Surgical History: Reports: None Neurological Surgical History: Reports: None Dermatological Surgical History: Reports: None Social & Family History - Family History Family Medical History: Noncontributory - Tobacco Use Smoking Status *Q: Never Smoker Second Hand Smoke Exposure: No - Caffeine Use Caffeine Use: Reports: None - Recreational Drug Use Recreational Drug Use: No - Living Situation & Occupation Living situation: Reports: , with Spouse Occupation: Retired H&P Review of Systems - Review of Systems: Review Of Systems: ROS reveals no pertinent complaints other than HPI. Exam - Exam Exam: See Below - Vital Signs Vital Signs: Last Vital Signs Temp 97.7 F 08/16/18 10:57 Pulse 90 08/16/18 10:57 Resp 22 H 08/16/18 10:57 BP 140/66 08/16/18 10:57 Pulse Ox 97 08/16/18 10:57 Weight: 178 lb 9.6 oz - Exam Physical Exam Comments:: General: Alert and oriented to place, time and person, mild-moderate distress Head: atraumatic and normocephalic. Eyes: PERRLA, EOMI, anicteric, Ear, Nose and Throat: No gross abnormality found Neck: Supple Respiratory/Chest: CTAB, no wheezes, crackles, rales, or rhonci; Good air entry bilaterally. No increased work of breathing CVS: RRR, no murmur, rub, or gallop, peripheral pulses palpable. Gastrointestinal/Abd: Soft, non-distended, non-tender. Normal bowel sounds. Skin: No acute rashes noted. Neuro: Grossly non-focal. No cranial nerve abnormality. Moves all extremities. 5 /5 motor function in upper extremities, 4+/5. Psych: Alert and oriented to place time and person. No hallucinations or delusions noted. Musculoskeletal: No abnormality noted. Ext: 2+ pitting edema of BLE, no ulcers, no tenderness, no size differences, - Patient Data Lab Results Last 24 hrs: Laboratory Results - last 24 hr 08/16/18 08/16/18 08/16/18 Range/Units 07:41 07:41 07:41 WBC 7.8 (5.0-10.0) 10^3/uL RBC 3.48 L (4.6-6.2) 10^6/uL Hgb 10.5 L (14.0-18.0) g/dL Hct 31.5 L (40.0-54.0) % MCV 90.5 (80-100) fL MCH 30.2 (27.0-34.0) pg MCHC 33.3 (33.0-35.0) g/dL Plt Count 138 L (150-450) 10^3/uL Neut % (Auto) 93.5 H (42.2-75.2) % Lymph % (Auto) 4.2 L (20.5-50.1) % [place] % (Auto) 2.1 (2-8) % Eos % (Auto) 0.1 L (1.0-3.0) % Baso % (Auto) 0.1 (0.0-1.0) % Sodium 138 (135-145) mmol/L Potassium 3.4 L (3.6-5.0) mmol/L Chloride 108 (101-111) mmol/L Carbon Dioxide 17.0 L (21.0-31.0) mmol/L Anion Gap 16.4 BUN 35 H (7-18) mg/dL Creatinine 1.5 H (0.6-1.3) mg/dL Est Cr Clr Drug Dosing TNP Estimated GFR (MDRD) 45 BUN/Creatinine Ratio 23.33 Glucose 66 L (74-105) mg/dL POC Glucose (83-110) mg/dl Calcium 9.2 (8.4-10.2) mg/dl Magnesium 2.0 (1.8-2.5) mg/dL Total Bilirubin 0.9 (0.2-1.0) mg/dL AST 36 (10-42) IU/L ALT 31 (10-60) IU/L Alkaline Phosphatase 98 (42-121) IU/L Troponin I < 0.02 (0.00-0.02) ng/ml C-Reactive Protein (0.0-1.3) mg/dL Total Protein 7.1 (6.7-8.2) g/dl Albumin 3.7 (3.2-5.5) g/dl Globulin 3.4 Albumin/Globulin Ratio 1.09 Urine Color (YELLOW) Urine Appearance (CLEAR) Urine pH (5.0-9.0) Ur Specific [place] (1.005-1.030) Urine Protein (NEGATIVE) Urine Glucose (UA) (NEGATIVE) Urine Ketones (NEGATIVE) Urine Occult Blood (NEGATIVE) Urine Nitrite (NEGATIVE) Urine Bilirubin (NEGATIVE) Urine Urobilinogen (0.2-1.0) mg/dL Ur Leukocyte Esterase (NEGATIVE) Urine RBC /HPF Urine WBC (0-5/HPF) /HPF Ur Epithelial Cells /HPF Urine Bacteria (0-FEW/HPF) /HPF 08/16/18 08/16/18 08/16/18 Range/Units 07:41 07:43 08:24 WBC (5.0-10.0) 10^3/uL RBC (4.6-6.2) 10^6/uL Hgb (14.0-18.0) g/dL Hct (40.0-54.0) % MCV (80-100) fL MCH (27.0-34.0) pg MCHC (33.0-35.0) g/dL Plt Count (150-450) 10^3/uL Neut % (Auto) (42.2-75.2) % Lymph % (Auto) (20.5-50.1) % [place] % (Auto) (2-8) % Eos % (Auto) (1.0-3.0) % Baso % (Auto) (0.0-1.0) % Sodium (135-145) mmol/L Potassium (3.6-5.0) mmol/L Chloride (101-111) mmol/L Carbon Dioxide (21.0-31.0) mmol/L Anion Gap BUN (7-18) mg/dL Creatinine (0.6-1.3) mg/dL Est Cr Clr Drug Dosing Estimated GFR (MDRD) BUN/Creatinine Ratio Glucose (74-105) mg/dL POC Glucose 69 L 91 (83-110) mg/dl Calcium (8.4-10.2) mg/dl Magnesium (1.8-2.5) mg/dL Total Bilirubin (0.2-1.0) mg/dL AST (10-42) IU/L ALT (10-60) IU/L Alkaline Phosphatase (42-121) IU/L Troponin I (0.00-0.02) ng/ml C-Reactive Protein 1.9 H (0.0-1.3) mg/dL Total Protein (6.7-8.2) g/dl Albumin (3.2-5.5) g/dl Globulin Albumin/Globulin Ratio Urine Color (YELLOW) Urine Appearance (CLEAR) Urine pH (5.0-9.0) Ur Specific [place] (1.005-1.030) Urine Protein (NEGATIVE) Urine Glucose (UA) (NEGATIVE) Urine Ketones (NEGATIVE) Urine Occult Blood (NEGATIVE) Urine Nitrite (NEGATIVE) Urine Bilirubin (NEGATIVE) Urine Urobilinogen (0.2-1.0) mg/dL Ur Leukocyte Esterase (NEGATIVE) Urine RBC /HPF Urine WBC (0-5/HPF) /HPF Ur Epithelial Cells /HPF Urine Bacteria (0-FEW/HPF) /HPF 08/16/18 08/16/18 Range/Units 08:54 09:35 WBC (5.0-10.0) 10^3/uL RBC (4.6-6.2) 10^6/uL Hgb (14.0-18.0) g/dL Hct (40.0-54.0) % MCV (80-100) fL MCH (27.0-34.0) pg MCHC (33.0-35.0) g/dL Plt Count (150-450) 10^3/uL Neut % (Auto) (42.2-75.2) % Lymph % (Auto) (20.5-50.1) % [place] % (Auto) (2-8) % Eos % (Auto) (1.0-3.0) % Baso % (Auto) (0.0-1.0) % Sodium (135-145) mmol/L Potassium (3.6-5.0) mmol/L Chloride (101-111) mmol/L Carbon Dioxide (21.0-31.0) mmol/L Anion Gap BUN (7-18) mg/dL Creatinine (0.6-1.3) mg/dL Est Cr Clr Drug Dosing Estimated GFR (MDRD) BUN/Creatinine Ratio Glucose (74-105) mg/dL POC Glucose 102 (83-110) mg/dl Calcium (8.4-10.2) mg/dl Magnesium (1.8-2.5) mg/dL Total Bilirubin (0.2-1.0) mg/dL AST (10-42) IU/L ALT (10-60) IU/L Alkaline Phosphatase (42-121) IU/L Troponin I (0.00-0.02) ng/ml C-Reactive Protein (0.0-1.3) mg/dL Total Protein (6.7-8.2) g/dl Albumin (3.2-5.5) g/dl Globulin Albumin/Globulin Ratio Urine Color Dark yellow (YELLOW) Urine Appearance Cloudy (CLEAR) Urine pH 5.5 (5.0-9.0) Ur Specific [place] 1.015 (1.005-1.030) Urine Protein 30 H (NEGATIVE) Urine Glucose (UA) 500 H (NEGATIVE) Urine Ketones Negative (NEGATIVE) Urine Occult Blood Moderate H (NEGATIVE) Urine Nitrite Positive H (NEGATIVE) Urine Bilirubin Negative (NEGATIVE) Urine Urobilinogen 0.2 (0.2-1.0) mg/dL Ur Leukocyte Esterase Small H (NEGATIVE) Urine RBC 10-20 H /HPF Urine WBC 50-75 H (0-5/HPF) /HPF Ur Epithelial Cells Rare /HPF Urine Bacteria Many H (0-FEW/HPF) /HPF Result Diagrams: 08/16/18 07:41 08/16/18 07:41 - Problem List (1) Muscle cramp SNOMED Code(s): 67632467 ICD Code: R25.2 - CRAMP AND SPASM Status: Acute Current Visit: Yes (2) Thrombocytopenia SNOMED Code(s): 397437671 ICD Code: D69.6 - THROMBOCYTOPENIA, UNSPECIFIED Status: Acute Current Visit: Yes (3) Anemia SNOMED Code(s): 785293017 ICD Code: D64.9 - ANEMIA, UNSPECIFIED Status: Acute Current Visit: Yes (4) Metabolic acidosis SNOMED Code(s): 38024243 ICD Code: E87.2 - ACIDOSIS Status: Acute Current Visit: Yes (5) Gout of right elbow SNOMED Code(s): 288197800, 314043368 ICD Code: M10.9 - GOUT, UNSPECIFIED Status: Acute Current Visit: No Qualifiers: Gout etiology: unspecified cause Chronicity: acute Qualified Code(s): M10.9 - Gout, unspecified (6) UTI (urinary tract infection) SNOMED Code(s): 71289878 ICD Code: N39.0 - URINARY TRACT INFECTION, SITE NOT SPECIFIED Status: Acute Current Visit: No Qualifiers: Urinary tract infection type: site unspecified Hematuria presence: with hematuria Qualified Code(s): N39.0 - Urinary tract infection, site not specified; R31.9 - Hematuria, unspecified Problem List Initiated/Reviewed/Updated: Yes Orders Last 24hrs: Active Orders 24 hr Category Date Time Status Patient Status [ADT] Routine ADT 08/16/18 11:34 Ordered Blood Glucose Check, Bedside [RC] QIDACANDBED Care 08/16/18 11:34 Ordered Oxygen Therapy [RC] PRN Care 08/16/18 11:34 Ordered POC Glucose [Blood Glucose Check, Bedside] [RC] ONETIME Care 08/16/18 07:34 Active Peripheral IV Care [RC] . DIRECTED Care 08/16/18 07:34 Active Peripheral IV Care [RC] . DIRECTED Care 08/16/18 09:54 Active Up With Assistance [RC] ASDIRECTED Care 08/16/18 11:34 Ordered VTE/DVT Education [RC] PER UNIT ROUTINE Care 08/16/18 11:34 Ordered Vital Signs [RC] Q4H Care 08/16/18 11:34 Ordered Consistent Carbohydrate Diet [DIET] Diet 08/16/18 Lunch Ordered BASIC METABOLIC PANEL,BMP [CHEM] AM Lab 08/17/18 05:11 Ordered CBC W/O DIFF,HEMOGRAM [HEME] AM Lab 08/17/18 05:11 Ordered CULTURE URINE [RM] Stat Lab 08/16/18 09:35 Received PHOSPHORUS [CHEM] Routine Lab 08/16/18 11:34 Ordered Acetaminophen [Tylenol Extra Strength] Med 08/16/18 11:41 Ordered 500 mg PO Q6H PRN Allopurinol [Zyloprim] Med 08/16/18 11:45 Ordered 300 mg PO DAILY Amphetamine/Dextroamphetamine [Adderall XR] Med 08/17/18 09:00 Ordered 15 mg PO DAILY Aspirin [Halfprin] Med 08/17/18 09:00 Ordered 81 mg PO DAILY Clopidogrel [Plavix] Med 08/16/18 11:45 Ordered 75 mg PO DAILY Fenofibrate [Fenofibrate] Med 08/17/18 09:00 Ordered 160 mg PO DAILY Gabapentin [Neurontin] Med 08/16/18 11:45 Ordered 600 mg PO BID Heparin Sodium Med 08/16/18 14:00 Ordered 5,000 units SUBCUT Q8HR Insulin Glarg,Human.Rec.Analog [Lantus Solostar] Med 08/16/18 21:00 Ordered 30 units SQ BEDTIME Insulin Lispro [Humalog] Med 08/16/18 17:00 Ordered 10 units SQ BIDAC Meclizine [Antivert] Med 08/16/18 11:41 Ordered 25 mg PO DAILY PRN Nitroglycerin [Nitrostat] Med 08/16/18 11:41 Ordered 0.4 tab SL ASDIRECTED PRN Ondansetron [Zofran ODT] Med 08/16/18 11:34 Ordered 4 mg PO Q6H PRN Promethazine [Phenergan] Med 08/16/18 11:34 Ordered 25 mg PO Q6H PRN Simvastatin [Zocor] Med 08/16/18 21:00 Ordered 20 mg PO BEDTIME cefTRIAXone [Rocephin] 1 gm Med 08/17/18 11:45 Ordered Lidocaine 1% [Xylocaine-MPF 1%] 2.1 ml IM DAILY Peripheral IV Insertion Adult [OM.PC] Routine Oth 08/16/18 09:54 Ordered Peripheral IV Insertion Adult [OM.PC] Stat Oth 08/16/18 07:34 Ordered Resuscitation Status Routine Resus Stat 08/16/18 11:34 Ordered Medication Orders Acetaminophen (Tylenol Extra Strength) 500 mg PO Q6H PRN PRN Reason: Pain Allopurinol (Zyloprim) 300 mg PO DAILY [facility] Aspirin (Halfprin) 81 mg PO DAILY [facility] Clopidogrel Bisulfate (Plavix) 75 mg PO DAILY [facility] Ceftriaxone Sodium 1 gm/ (Lidocaine HCl 2.1 ml) 0 gm IM DAILY ONE Stop: 08/17/18 11:46 Gabapentin (Neurontin) 600 mg PO BID [facility] Heparin Sodium (Porcine) (Heparin Sodium) 5,000 units SUBCUT Q8HR [facility] Nitroglycerin (Nitrostat) mg SL ASDIRECTED PRN PRN Reason: Chest Pain Non-Formulary Medication (Amphetamine/Dextroamphetamine [Adderall Xr]) 15 mg PO DAILY [facility] Non-Formulary Medication (Fenofibrate [Fenofibrate]) 160 mg PO DAILY [facility] Non-Formulary Medication (Insulin Glarg,Human.Rec.Analog [Lantus Solostar]) 30 units SQ BEDTIME [facility] Non-Formulary Medication (Insulin Lispro [Humalog]) 10 units SQ BIDAC [facility] Non-Formulary Medication (Meclizine [Antivert]) 25 mg PO DAILY PRN PRN Reason: Dizziness Ondansetron HCl (Zofran Odt) 4 mg PO Q6H PRN PRN Reason: nausea, able to take PO Promethazine HCl (Phenergan) 25 mg PO Q6H PRN PRN Reason: nausea, able to take PO Simvastatin (Zocor) 20 mg PO BEDTIME [facility] Assessment/Plan Comment:: #Hypoglycemia: Likely 2/2 taking his humalog at bedtime. - Decrease doses of Levemir and #Cramps: Reports that this is chronic. Documented response to Zanaflex in the past. - Trial of Zanaflex. - B12 was low normal in 2018. - Mg is normal. # UTI: UA positive for nitrites and leukocytes. Received Rocephin in the ED. - Resume rocephin, - Follow up on UA. #Metabolic acidosis: serum bicarb of 17. - IVF. - Monitor renal function DVT Ppx: Heparin GI Ppx: Diabetic diet; Full Code
[2018-08-16] MEDS ORDERED: 50% Dextrose in Water 50 ML Syringe IVPUSH PRN (12:11)
[2018-08-16] MEDS ORDERED: Glucagon,Human Recombinant 1 MG Vial IM PRN (12:11)
[2018-08-16] MEDS ORDERED: Cyclobenzaprine 10 MG Tab PO PRN (12:30)
[2018-08-16] MEDS: Clopidogrel 75 MG Tab PO SCH (13:03)
[2018-08-16] MEDS: Gabapentin 300 MG Cap PO SCH ×2 (13:03→21:30)
[2018-08-16] MEDS: Allopurinol 300 MG Tab PO SCH (13:04)
[2018-08-16] MEDS ORDERED: Potassium Chloride 10 MEQ Tab.ER PO ONE ×2 (14:23→17:15)
[2018-08-16] MEDS ORDERED: Phosphorus #1 250 MG Tab PO ONE ×2 (14:24→17:15)
[2018-08-16] MEDS: Heparin Sodium 5,000 Units/ML Vial SUBCUT SCH ×2 (14:57→21:34)
[2018-08-16] MEDS: Lactated Ringers 1,000 ML IV SCH (14:57)
[2018-08-16] MEDS ORDERED: Insulin Lispro 100 Units/ML 3 ML Vial SUBCUT SCH (17:00)
[2018-08-16] MEDS: Insulin Lispro 100 Units/ML 3 ML Vial SUBCUT SCH (17:54)
[2018-08-16] MEDS: Simvastatin 10 MG Tab PO SCH (21:30)
[2018-08-16] MEDS: Insulin Glarg,Human.Rec.Analog 100 UNIT/ML ML SUBCUT SCH (21:30)
[2018-08-17] MEDS: Lactated Ringers 1,000 ML IV SCH ×2 (01:11→11:10)
[2018-08-17] MEDS: Acetaminophen 500 MG Tab PO PRN (05:27)
[2018-08-17] MEDS: Heparin Sodium 5,000 Units/ML Vial SUBCUT SCH ×3 (05:28→21:15)
[2018-08-17 06:53] LABS: ANION GAP 14.2; CHLORIDE,CL 107 mmol/L (101-111); SODIUM,NA 136 mmol/L (135-145)
[2018-08-17] MEDS: Clopidogrel 75 MG Tab PO SCH (08:22)
[2018-08-17] MEDS: Aspirin 81 MG Tab.EC PO SCH (08:22)
[2018-08-17] MEDS: Gabapentin 300 MG Cap PO SCH ×2 (08:22→21:11)
[2018-08-17] MEDS: Allopurinol 300 MG Tab PO SCH (08:22)
[2018-08-17] MEDS: Insulin Lispro 100 Units/ML 3 ML Vial SUBCUT SCH ×5 (08:23→18:11)
[2018-08-17] MEDS ORDERED: Non-Formulary Medication 1 Each (Fenofibrate [Fenofibrate] 160 MG) PO SCH (09:00)
[2018-08-17] MEDS ORDERED: cefTRIAXone 1 GM, Lidocaine 1% 2.1 ML IM ONE ×2 (09:00)
[2018-08-17] MEDS ORDERED: AMPHETAMINE PO SCH (09:00)
[2018-08-17] MEDS ORDERED: cefTRIAXone 1 GM in Sodium Chloride 0.9% 50 ML IV ONE (09:00)
[2018-08-17] MEDS ORDERED: DEXTROAMPHETAMINE PO SCH (09:00)
[2018-08-17] MEDS: Sodium Chloride 0.9% 10 ML Syringe FLUSH PRN (09:57)
[2018-08-17] MEDS ORDERED: cefTRIAXone 1 GM in Sodium Chloride 0.9% 50 ML IV SCH (11:15)
--- NOTE | 2018-08-17 11:43 | PN ---
DATE: 08/17/2018 SUBJECTIVE: Mr. Marco Jones is a 77-year-old male with medical history significant for hypertension; hyperlipidemia; coronary artery disease; type 2 diabetes mellitus; nephrolithiasis; history of tonsillar cancer, status post radiation therapy; and history of seizure disorder; admitted with generalized weakness and tiredness and noted to have severe hypoglycemia and noted to have urinary tract infection. For the last 24 hours, the patient continues to have weakness and tiredness; grades it as 3 to 4/10 in intensity. Denies any chest pain. No shortness of breath. No abdominal pain. No nausea. No vomiting. Complains of mild swelling to his lower extremities. REVIEW OF SYSTEMS: Cardiovascular, respiratory, gastrointestinal, neurology, constitutional were all evaluated. PHYSICAL EXAMINATION: Vital Signs: Temperature of 98.9, pulse of 73, blood pressure 128/56, respiratory rate of 24, and saturating at 97% on 1 L of oxygen. General Appearance: The patient is well oriented to time, place, and person. Follows commands spontaneously. Cardiovascular System: S1 and S2 heard with normal intensity. No gallops. Respiratory System: Clear to auscultation bilaterally. No wheeze. No crepitations. Abdomen: Soft. Bowel sounds positive. Nontender. No rigidity. Extremities: Mild edema in bilateral lower extremities. Neurology: No gross focal neurological deficit. MEDICATIONS: Reviewed. Continue with: 1. Tylenol 500 every 6 hours as needed for pain. 2. Allopurinol 300 mg daily. 3. Aspirin 81 mg daily. 4. Ceftriaxone 1 g IV daily. 5. Plavix 75 mg daily. 6. Flexeril 10 mg as needed for muscle spasms. 7. Neurontin 600 mg twice a day. 8. Heparin 5000 subcutaneous q.8 hourly. 9. Lantus 30 units at bedtime. 10.Humalog 10 units twice a day and as needed. 11.Nitroglycerin 0.4 mg sublingual as needed for chest pain. 12.Zocor 20 mg at bedtime. LABORATORY DATA: Labs reviewed. 1. WBC 3.4, hemoglobin 8.3, hematocrit 25.6, and platelet count 104. 2. Sodium 136, potassium 4.2, chloride 107, bicarb 19, BUN 27, creatinine 1.1, glucose 224. 3. Urine culture shows greater than 100,000 colony-forming units of gram- negative rods. ASSESSMENT: 1. Urinary tract infection. 2. Hypokalemia. 3. Acute renal failure. 4. Hypoglycemia. 5. Hypertension. 6. Hyperlipidemia. 7. Type 2 diabetes mellitus. 8. Generalized weakness and debility, resulting in frequent falls. 9. Metabolic acidosis. PLAN: 1. Urinary tract infection. The patient's urine culture is positive for gram- negative rods. He is currently on ceftriaxone. We will continue the same. We will follow with ID and susceptibility on the culture report and titrate the antibiotics. 2. Type 2 diabetes mellitus, uncontrolled. The patient was noted to have hypoglycemic episodes. We decreased the Lantus and Humalog doses. He is noted to have elevated blood sugars. We will closely follow and further titrate up the medication to optimize his blood sugars. 3. Metabolic acidosis. This is mainly from the dehydration. He is started on IV fluids. We will hold IV fluids for now. 4. Acute renal failure, improved. The patient noted to have a creatinine of 1.5 at the time of admission with elevated BUN and seems to be improving with IV fluids. Avoid nephrotoxic agents. Dose adjust medications for renal function. Recheck a basic metabolic panel in the a.m. 5. Anemia. This could be anemia of chronic disease. We will recheck a CBC in the a.m. No indication for transfusion. 6. Generalized debility. We will have Physical Therapy and Occupational Therapy evaluate and treat the patient and have him on fall precautions. 7. DVT prophylaxis. Continue with heparin for DVT prophylaxis. [facility] /[id number]
[2018-08-17] MEDS: Simvastatin 10 MG Tab PO SCH (21:12)
[2018-08-17] MEDS: Insulin Glarg,Human.Rec.Analog 100 UNIT/ML ML SUBCUT SCH (21:13)
[2018-08-18] MEDS: Heparin Sodium 5,000 Units/ML Vial SUBCUT SCH ×3 (05:49→21:11)
[2018-08-18 06:59] LABS: ANION GAP 14.3; CHLORIDE,CL 103 mmol/L (101-111); SODIUM,NA 134 mmol/L (135-145)
[2018-08-18] MEDS: Insulin Lispro 100 Units/ML 3 ML Vial SUBCUT SCH ×5 (07:59→17:10)
[2018-08-18] MEDS: cefTRIAXone 1 GM in Sodium Chloride 0.9% 50 ML IV SCH (09:04)
[2018-08-18] MEDS: Allopurinol 300 MG Tab PO SCH (09:04)
[2018-08-18] MEDS: Clopidogrel 75 MG Tab PO SCH (09:04)
[2018-08-18] MEDS: Gabapentin 300 MG Cap PO SCH ×2 (09:05→21:13)
[2018-08-18] MEDS: Aspirin 81 MG Tab.EC PO SCH (09:05)
--- NOTE | 2018-08-18 12:21 | PN ---
DATE: 08/18/2018 SUBJECTIVE: Mr. Marco Jones is a 77-year-old male with medical history significant for hypertension, hyperlipidemia, coronary artery disease, type 2 diabetes mellitus, nephrolithiasis, and history of seizure disorder, admitted with generalized weakness and tiredness, noted to have hypoglycemic episodes along with urinary tract infection. For the last 24 hours, the patient complains of pain to the right elbow site. He denies any chest pain. No shortness of breath. No abdominal pain. No nausea. No vomiting. No diarrhea. The pain to the right elbow has been going on for the last 1 to 2 months which gets aggravated on movement, relieved with pain medication, nonradiating in nature. REVIEW OF SYSTEMS: Cardiovascular, respiratory, gastrointestinal, neurology, constitutional were all evaluated. PHYSICAL EXAMINATION: Vital Signs: Temperature of 98.5, pulse of 85, blood pressure of 109/67, respiratory rate of 18, and saturating at 96%. General Appearance: The patient is well oriented to time, place, and person. Follows commands spontaneously. Cardiovascular System: S1 and S2 heard with normal intensity. No gallops. Respiratory System: Clear to auscultation bilaterally. No wheeze. No crepitations. Abdomen: Soft. Bowel sounds positive. Nontender. No rigidity. Extremities: Mild edema in bilateral lower extremities and bursa noted on the right elbow, possible olecranon bursitis. MEDICATIONS: Reviewed. Continue with: 1. Tylenol as needed for pain. 2. Allopurinol 300 mg daily. 3. Aspirin 81 mg daily. 4. Ceftriaxone 1 g daily. 5. Plavix 75 mg daily. 6. Neurontin 600 mg twice a day. 7. Heparin 5000 subcutaneous q.8 hourly. 8. Lantus 40 units subcu at bedtime. 9. Humalog 10 units twice a day. 10.Zofran as needed. 11.Simvastatin 20 mg at bedtime. LABORATORY DATA: Labs reviewed. 1. WBC 2.8, hemoglobin 9.6, hematocrit 29.3, and platelet count 107. 2. Sodium 134, potassium 4.3, chloride 103, BUN 23, creatinine 1.1, and glucose 217. ASSESSMENT: 1. Urinary tract infection with Escherichia coli, sensitive to ceftriaxone. 2. Hypokalemia, improved. 3. Acute renal failure, improved. 4. Hypoglycemia, improved. 5. Hypertension. 6. Type 2 diabetes mellitus. 7. Hyperlipidemia. 8. Generalized weakness and debility, resulting frequent falls. 9. Metabolic acidosis, improved. 10.Olecranon bursitis. PLAN: 1. Urinary tract infection. The patient noted to have urinary tract infection. Urine culture is growing Escherichia coli which is sensitive to ceftriaxone. We will continue with IV ceftriaxone for now. 2. Type 2 diabetes mellitus, uncontrolled. The patient was noted to have hypoglycemic episodes. We have been titrating up the insulin regimen to optimize his blood sugar, try to avoid any hypo and hyperglycemic episodes. 3. Metabolic acidosis, improved with IV fluids. 4. Acute renal failure, resolved. The patient's creatinine is back to baseline. 5. Olecranon bursitis. The patient is noted to have bursitis, noted on the right elbow. We will get an x-ray of the right elbow to make sure the patient does not have any underlying fracture as there is some pain elicited. The patient had falls at his home. 6. DVT prophylaxis. Continue with heparin for DVT prophylaxis. 7. We will have Physical Therapy and Occupational Therapy evaluate and treat the patient. [facility] /[id number]
--- NOTE | 2018-08-18 14:11 | CR ---
Clinical history: 77-year-old male pain and swelling right elbow. Interpretation: Abnormal. *Pronounced swelling of the olecranon bursa and large olecranon spur proximal right ulna as noted on previous exam 10 August 2018 i.e. unchanged Note: Ill-defined calcifications in the subcutaneous tissues raises the possibility of gouty arthritis. Clinical? Lab? No actual right elbow joint effusion and no sign of foreign body, inflammatory periostitis, acute right elbow fracture or dislocation (osteochondral lesion proximal diaphysis of the right radius).
[2018-08-18] MEDS: Acetaminophen 500 MG Tab PO PRN (20:01)
[2018-08-18] MEDS ORDERED: Insulin Glarg,Human.Rec.Analog 100 UNIT/ML ML SUBCUT SCH (21:00)
[2018-08-18] MEDS: Simvastatin 10 MG Tab PO SCH (21:12)
[2018-08-19] MEDS: Heparin Sodium 5,000 Units/ML Vial SUBCUT SCH ×3 (05:31→21:20)
[2018-08-19] MEDS: Acetaminophen 500 MG Tab PO PRN ×2 (07:30→19:22)
[2018-08-19] MEDS: Insulin Lispro 100 Units/ML 3 ML Vial SUBCUT SCH ×5 (08:25→17:13)
[2018-08-19] MEDS: cefTRIAXone 1 GM in Sodium Chloride 0.9% 50 ML IV SCH (09:18)
[2018-08-19] MEDS: Sodium Chloride 0.9% 10 ML Syringe FLUSH PRN (09:26)
[2018-08-19] MEDS: Gabapentin 300 MG Cap PO SCH ×2 (09:28→21:22)
[2018-08-19] MEDS: Clopidogrel 75 MG Tab PO SCH (09:28)
[2018-08-19] MEDS: Aspirin 81 MG Tab.EC PO SCH (09:28)
[2018-08-19] MEDS: Allopurinol 300 MG Tab PO SCH (09:28)
--- NOTE | 2018-08-19 12:48 | PN ---
DATE: 08/19/2018 SUBJECTIVE: Mr. Marco Jones is a 77-year-old male with medical history significant for hypertension, hyperlipidemia, coronary artery disease, type 2 diabetes mellitus, nephrolithiasis, and history of seizure disorder, admitted with generalized weakness and tiredness, noted to have hypoglycemic episodes along with urinary tract infection. For the last 24 hours, the patient complains of having dizziness, especially when he is ambulating around. He denies any chest pains or shortness of breath. Continues to have right upper extremity pain at the elbow and the shoulder. The patient had fallen prior to coming to the hospital. Denies any abdominal pain. No nausea. No vomiting. No diarrhea. REVIEW OF SYSTEMS: Cardiovascular, respiratory, gastrointestinal, neurology, constitutional were all evaluated. PHYSICAL EXAMINATION: Vital Signs: Temperature of 97, pulse of 70, blood pressure 131/66, respiratory rate of 20, and saturating at 97% on room air. General Appearance: The patient is well oriented to time, place, and person. Follows commands spontaneously. Cardiovascular System: S1 and S2 heard with normal intensity. No gallops. Respiratory System: Clear to auscultation bilaterally. No wheeze. No crepitations. Abdomen: Soft. Bowel sounds positive. Nontender. No rigidity. Extremities: No edema in the bilateral lower extremities. Neurology: No gross focal neurological deficit. MEDICATIONS: Reviewed. Continue the same. LABORATORY DATA: Blood sugar 233. ASSESSMENT: 1. Type 2 diabetes mellitus, uncontrolled. 2. Generalized weakness. 3. Dizziness. 4. Urinary tract infection with Escherichia coli, sensitive to ceftriaxone. 5. Hypokalemia, improved. 6. Acute renal failure, improved. 7. Hypertension. 8. Hyperlipidemia. 9. Metabolic acidosis, improved. 10.Olecranon bursitis. PLAN: 1. Urinary tract infection. The patient is noted to have Escherichia coli in the urine culture, sensitive to ceftriaxone. Continue with current IV antibiotic regimen. 2. Dizziness. The patient complains of dizziness on ambulation. We will check orthostatic vitals to see if the patient has any dehydration leading to this dizziness. We will closely follow. 3. Acute renal failure, resolved. We will recheck a basic metabolic panel in the a.m. 4. Type 2 diabetes mellitus, uncontrolled. The patient was noted to have hypoglycemic episodes at the time of admission. We decreased his insulin regimen. At this time, his sugar seems to be elevated. We will further titrate up the insulin to optimize his blood sugars. 5. Hypertension, improved. Continue with current antihypertensive medication. 6. Generalized weakness. We will have Physical Therapy and Occupational Therapy evaluate and treat the patient. 7. Olecranon bursitis. The patient had an x-ray of the elbow yesterday which showed some calcification suggesting possible gouty arthritis. The patient had history of gout in the past. His uric acid level is within normal limits. We will closely follow. The patient would benefit from orthopedic consultation as an outpatient as he is complaining of right shoulder pain also, and this will be done as an outpatient. [facility] /[id number]
[2018-08-19] MEDS: Insulin Glarg,Human.Rec.Analog 100 UNIT/ML ML SUBCUT SCH (21:18)
[2018-08-19] MEDS: Simvastatin 10 MG Tab PO SCH (21:21)
[2018-08-20] MEDS: Heparin Sodium 5,000 Units/ML Vial SUBCUT SCH ×3 (05:35→22:08)
[2018-08-20] MEDS: Acetaminophen 500 MG Tab PO PRN ×2 (05:38→14:17)
[2018-08-20 06:50] LABS: ANION GAP 13.9; CHLORIDE,CL 106 mmol/L (101-111); SODIUM,NA 136 mmol/L (135-145)
[2018-08-20] MEDS: Insulin Lispro 100 Units/ML 3 ML Vial SUBCUT SCH ×5 (08:14→17:17)
[2018-08-20] MEDS: cefTRIAXone 1 GM in Sodium Chloride 0.9% 50 ML IV SCH (09:12)
[2018-08-20] MEDS: Sodium Chloride 0.9% 10 ML Syringe FLUSH PRN (09:27)
[2018-08-20] MEDS: Gabapentin 300 MG Cap PO SCH ×2 (09:32→22:07)
[2018-08-20] MEDS: Allopurinol 300 MG Tab PO SCH (09:32)
[2018-08-20] MEDS: Clopidogrel 75 MG Tab PO SCH (09:32)
[2018-08-20] MEDS: Aspirin 81 MG Tab.EC PO SCH (09:32)
--- NOTE | 2018-08-20 13:19 | PN ---
DATE: 08/20/2018 SUBJECTIVE: Mr. Marco Jones is a 77-year-old male with medical history significant for hypertension, hyperlipidemia, coronary artery disease, type 2 diabetes mellitus, admitted with hypoglycemic episodes and urinary tract infection. For the last 24 hours, the patient denies any chest pain. No shortness of breath. No abdominal pain. No nausea. No vomiting. REVIEW OF SYSTEMS: Cardiovascular, respiratory, gastrointestinal, neurology, constitutional were all evaluated. PHYSICAL EXAMINATION: Vital Signs: Temperature of 97.6, pulse of 76, blood pressure of 113/61, respiratory rate of 20, saturating at 96%. General Appearance: The patient is well oriented to time, place, and person. Follows commands spontaneously. Cardiovascular system: S1 and S2 heard with normal intensity. No gallops. Respiratory System: Clear to auscultation bilaterally. No wheeze. No crepitations. Abdomen: Soft. Bowel sounds are positive. Nontender. No rigidity. Extremities: Mild edema in bilateral lower extremities. MEDICATIONS: Reviewed. Continue the same. Continue with IV ceftriaxone. LABORATORY DATA: WBC 2.4, hemoglobin 9.1, hematocrit 27.7, platelet count 111. Sodium 136, potassium 3.9, BUN 20, creatinine 1, glucose 196. ASSESSMENT: 1. Urinary tract infection with Escherichia coli, sensitive to ceftriaxone. 2. Type 2 diabetes mellitus. 3. Hypokalemia. 4. Acute renal failure. 5. Hypertension. 6. Hyperlipidemia. 7. Metabolic acidosis. 8. Olecranon bursitis. PLAN: 1. Urinary tract infection. The patient is started on IV ceftriaxone. He is noted to have Escherichia coli in the culture report and sensitive to ceftriaxone. We will switch him to oral antibiotic at the time of discharge. 2. Dizziness. This seems to be mildly improved. The patient is encouraged to have good oral intake. His blood pressure remained stable. 3. Acute renal failure, resolved. His creatinine is back to baseline function. 4. Type 2 diabetes mellitus, improving. We will further titrate up the insulin to optimize his blood sugar, try to avoid any hypoglycemic episodes. 5. Hypertension, improved. 6. Generalized weakness, much improved. We will continue physical therapy and occupational therapy. 7. Possible discharge in a.m. if he remains hemodynamically stable. [facility] /[id number]
[2018-08-20] MEDS: Insulin Glarg,Human.Rec.Analog 100 UNIT/ML ML SUBCUT SCH (22:05)
[2018-08-20] MEDS: Simvastatin 10 MG Tab PO SCH (22:07)
[2018-08-21] MEDS: Acetaminophen 500 MG Tab PO PRN (02:32)
[2018-08-21] MEDS: Heparin Sodium 5,000 Units/ML Vial SUBCUT SCH (06:19)
[2018-08-21] MEDS: Gabapentin 300 MG Cap PO SCH (08:30)
[2018-08-21] MEDS: Aspirin 81 MG Tab.EC PO SCH (08:30)
[2018-08-21] MEDS: Clopidogrel 75 MG Tab PO SCH (08:30)
[2018-08-21] MEDS: Allopurinol 300 MG Tab PO SCH (08:30)
[2018-08-21] MEDS: Insulin Lispro 100 Units/ML 3 ML Vial SUBCUT SCH ×3 (08:31→11:36)
[2018-08-21] MEDS: cefTRIAXone 1 GM in Sodium Chloride 0.9% 50 ML IV SCH (08:33)
[2018-08-21] MEDS: Sodium Chloride 0.9% 10 ML Syringe FLUSH PRN (08:33)
[2018-08-21 13:39] VITALS: BP 106/54
[2018-08-21] MEDS ORDERED: Nitrofurantoin Monohydrate/Macrocrystalline 100 MG Cap PO SCH (21:00)
--- NOTE | 2018-08-22 09:05 | DISCH ---
DATE OF SERVICE: 08/21/2018 ADMITTING DIAGNOSES: 1. Generalized weakness with debility. 2. Hypoglycemia. 3. Urinary tract infection. 4. Metabolic acidosis. DISCHARGE DIAGNOSES: 1. Urinary tract infection with Escherichia coli sensitive to ceftriaxone and nitrofurantoin. 2. Generalized weakness with debility, resolved. 3. Type 2 diabetes mellitus, improved. 4. Hypertension, improved. 5. Metabolic acidosis, resolved. 6. Mild hyponatremia, improved. HISTORY OF PRESENTING ILLNESS: Mr. Marco Jones is a 77-year-old male with a medical history significant for hypertension, type 2 diabetes mellitus, hyperlipidemia, coronary artery disease, was admitted to the hospital with generalized weakness and debility. The patient was noted to have hypoglycemic episodes at the time of admission and was noted to have urinary tract infection. His urine culture was positive for E. coli. The patient got treated with 5 days of IV antibiotic ceftriaxone and later switched to nitrofurantoin at the time of discharge. He responded well to the treatment. We had to dose adjust his insulin to avoid any hypoglycemic episodes. His blood sugars are better. He remained hemodynamically stable. He was evaluated by Physical Therapy and Occupational Therapy. He is able to ambulate well without any difficulty. The patient was noted to have olecranon bursitis, and he was advised to follow with [facility] as an outpatient. He was advised to follow with primary care physician in the next 1 week of time. He was noted to have mild acute renal failure which got resolved with IV fluids, and his electrolyte imbalance was corrected. He was noted to have a creatinine of 1.5 at the time of admission which got improved to 1. He was also noted to have mild hypokalemia with a potassium of 3.4 which got improved to 3.9 at the time of discharge. He was discharged home in stable condition. HOME MEDICATIONS: Include: 1. Tylenol 500 mg every 6 hours as needed for pain. 2. Allopurinol 300 mg daily. 3. Adderall XR 15 mg daily. 4. Aspirin 81 mg daily. 5. Plavix 75 mg daily. 6. Fenofibrate 160 mg daily. 7. Neurontin 600 mg twice a day. 8. Lantus 45 units at bedtime. 9. Humalog 13 units twice a day. 10.Meclizine 25 mg as needed. 11.Nitrofurantoin 100 mg twice a day for next 5 days. 12.Nitroglycerin 0.4 mg sublingual as needed for chest pain. 13.Simvastatin 20 mg at bedtime. PHYSICAL EXAMINATION: On the day of discharge: Vital Signs: Temperature of 97.4, pulse of 87, blood pressure 103/50, respiratory rate of 18, saturating at 98% on room air. General Appearance: The patient is well oriented to time, place, and person. Follows commands spontaneously. Cardiovascular System: S1, S2 heard with normal intensity. No gallops. Respiratory System: Clear to auscultation bilaterally. No wheeze. No crepitations. Abdomen: Soft. Bowel sounds positive. Nontender. No rigidity. Extremities: Mild edema of bilateral lower extremities. Neurology: No gross focal neurological deficit. CONDITION ON ADMISSION: Poor. CONDITION ON DISCHARGE: Stable. DISPOSITION: Discharged to home. ACTIVITY: As tolerated. DIET: Cardiac healthy diet with consistent carbohydrate diet. FOLLOWUP: Follow up with primary care physician in the next 1 week of time. TIME SPENT: Spent over 35 minutes of time in evaluating and treating this patient and discussing discharge plans. [facility] /[id number]
== END 2018-08-21 13:55 | disposition home or self-care (01) | DRG 638 ==
LOC: DL.ED 07:25 → DL.MS 10:46 → UNDOADMOB 10:46 → DL.MS 11:34 → OBSVTOIN 11:44
PROVIDERS: ADMIT Internal Medicine; ATTEND Internal Medicine
DX: E11.649 Type 2 diabetes mellitus with hypoglycemia without coma (principal); N39.0 Urinary tract infection, site not specified; R25.2 Cramp and spasm; E87.2 Acidosis; E78.00 Pure hypercholesterolemia, unspecified; E87.1 Hypo-osmolality and hyponatremia; N17.9 Acute kidney failure, unspecified; R31.9 Hematuria, unspecified; I25.10 Atherosclerotic heart disease of native coronary artery without angina pectoris; B96.20 Unspecified Escherichia coli [E. coli] as the cause of diseases classified elsewhere; E78.5 Hyperlipidemia, unspecified; G40.909 Epilepsy, unspecified, not intractable, without status epilepticus; D69.6 Thrombocytopenia, unspecified; I10 Essential (primary) hypertension; M10.9 Gout, unspecified; K21.9 Gastro-esophageal reflux disease without esophagitis; N42.9 Disorder of prostate, unspecified; M19.90 Unspecified osteoarthritis, unspecified site; F41.9 Anxiety disorder, unspecified; F31.9 Bipolar disorder, unspecified; E87.6 Hypokalemia; M70.21 Olecranon bursitis, right elbow; D63.8 Anemia in other chronic diseases classified elsewhere; Z79.52 Long term (current) use of systemic steroids; Z88.0 Allergy status to penicillin; Z88.8 Allergy status to other drugs, medicaments and biological substances; Z79.82 Long term (current) use of aspirin; Z79.4 Long term (current) use of insulin; Z79.899 Other long term (current) drug therapy
CPT/HCPCS: 36415; 80053; 81001; 82962 ×3; 83735; 84100; 84484; 85025; 86140; 87086; 87088; 87186; 93005; 96361; 96365; 96372; 99285; G0378 ×2; J0696; J2360; J7050; 73070-RT; 80048; 84550; 85027; 96366; 97162-GP; 97165-GO; A9270-GY; J1644; J1815; J1815-GY; J7120